=== PATIENT | female | born 1975 | race Caucasian/White ===

== ENCOUNTER → 2017-06-28 | Outpatient (CLI) | payer BC ==
[~2017-06-28] MED LIST: ALKALETE PO; MISCCAP80 PO; [UNRECOGNIZED DRUG - OTHER] PO
[2017-06-28 11:10] LABS: URINE APPEARANCE CLEAR (CLEAR); URINE BILIRUBIN NEG (NEG); URINE COLOR YELLOW; URINE EPITHELIAL CELL AUTO 0-5 /lpf (0-5); URINE NITRITE NEG (NEG); URINE PH 6.5 (4.5-7.5); URINE SPECIFIC GRAVITY 1.009 (1.000-1.030); UROBILINOGEN NEG (NEG); ZZUR CULT IF INDIC CLEAN CATCH NO
[2017-06-28 11:11] LABS: MANUAL MICROSCOPIC REQUIRED? NO; REVIEW REQ? NO
== END | disposition home or self-care (01) ==
LOC: C.LABSPEC 10:33
PROVIDERS: ATTEND Obstetrics & Gynecology
DX: R39.9 Unspecified symptoms and signs involving the genitourinary system (principal)

== ENCOUNTER → 2018-01-23 | Outpatient (CLI) | payer BC | END | disposition home or self-care (01) | LOC: C.LAB 13:09 | PROVIDERS: ATTEND Nurse Practitioner Adult Health | DX: R30.0 Dysuria (principal) ==

== ENCOUNTER 2025-08-07 17:15 | Observation (INO) ==
[2025-08-07] MEDS: SODIUM CHLORIDE 0.9% 500 ML IV STA (17:43)
[2025-08-07 18:21] LABS: Hematocrit (blood only) 40.5 % (37.0-47.0); Hemoglobin 14.0 g/dL (12.0-16.0); Immature Granulocytes # (auto) 0.03 K/uL (0.01-0.20); Immature Granulocytes % (auto) 0.3 %; Mean Corpuscular Hemoglobin 30.4 pg (25.0-34.0); Mean Corpuscular Volume 87.9 fL (80.0-100.0); Platelet Count 372 K/uL (130-400); RDW Standard Deviation 40.3 fL (36.4-46.3); Red Blood Count 4.61 M/uL (4.20-5.40); White Blood Count 10.50 K/ul (4.8-10.8)
[2025-08-07 18:40] LABS: Alanine Aminotransferase 23.0 U/L (7-52); Albumin Globulin Ratio 1.6 (0.9-2); Albumin Level 4.4 gm/dl (3.4-5.0); Alkaline Phosphatase 106.0 U/L (34-104); Anion Gap 9.0 (3-11); Bilirubin,Total 0.2 mg/dl (0.2-1.0); Blood Urea Nitrogen 14.0 mg/dl (6-23); Calcium 9.3 mg/dl (8.6-10.3); Carbon Dioxide 26.0 mmol/L (21-32); Chloride 103.0 mmol/L (98-107); Creatinine Clr Calc Pharmacy 55.0 ml/min; Globulin 2.8 gm/dl (2.5-4.0); Glucose 93.0 mg/dl (70-99(Fasting)); Potassium 3.6 mmol/L (3.5-5.1); Sodium 138.0 mmol/L (136-145); Total Protein 7.2 gm/dl (6.0-8.3)
[2025-08-07 19:13] LABS: POC Urine Bilirubin Negative (Negative); POC Urine Blood 50 (Negative); POC Urine Glucose Normal (Normal); POC Urine Ketones Negative (Negative); POC Urine Leukocytes Negative (Negative); POC Urine Nitrite Negative (Negative); POC Urine Protein Trace (Negative); POC Urine Urobilinogen Normal (Normal); POC Urine pH 5 (4.5-7.5)
[2025-08-07] MEDS: ONDANSETRON INJ 2 MG/ML 2 ML VIAL IV STA (19:16)
[2025-08-07] MEDS: KETOROLAC TROMETHAMINE 15 MG/ML VIAL IV STA ×2 (19:16→21:18)
[2025-08-07 19:25] LABS: Appearance Urine Clear (Clear); Bacteria Urine Automated 3+ (None Seen); Cast Urine Automated 0-2 /lpf (0-2); Glucose Urine UA Negative (Negative)
--- NOTE | 2025-08-07 20:48 | CT Scan Report ---
Exam: CT abdomen/pelvis without contrast. Reason for exam: Flank pain. Previous studies: CT abdomen/pelvis 05/15/2024. FINDINGS: The lower lung zones remain essentially clear. Liver unremarkable. Clips from cholecystectomy are present. Pancreas and spleen are unremarkable. Adrenal glands are unremarkable. Right kidney is unremarkable. Left kidney shows moderate hydronephrosis with a 1 mm mid pole calyceal calculus. There is a 7 x 4 mm calculus in the proximal left ureter with proximal ureteral dilatation. No further ureteral calculi seen at this time. Pelvic phleboliths remain stable. Bowel patterns are unremarkable without evidence of bowel obstruction. Appendix is unremarkable. IMPRESSION: 1. 7 mm proximal left ureteric calculus with moderate left hydronephrosis. Additional small left intrarenal calculus is present. 2. Otherwise negative for acute abnormalities. Electronically signed by Vinnie Rick 08-07-2025 8:47 PM
--- NOTE | 2025-08-07 21:15 | History & Physical Report ---
Date of Service August 07, 2025 Assessment & Plan (1) Hydronephrosis concurrent with and due to calculi of kidney and ureter: Plan: Assessment and plan below following discussion of case with ED provider and reviewing patient history/pertinent normal/abnormal diagnostic test results. Obstructive uropathy secondary to kidney stone No sepsis for now migraine, patient with chronic headache symptoms ADHD/mood disorder, stable on regimen ongoing tobacco abuse Admit to [facility] Strain urine Urology consult re: obstructive uropathy N.p.o. anticipation of procedure Nicotine patch as needed DVT prophylaxis Lovenox subcu Full code Text document was generated using [employer] voice recognition software. It may contain grammatical or spelling errors. Kindly contact undersigned for clarification of any documentation item in question. History of Present Illness Chief Complaint: Kidney stone Primary Care Provider: Amari Rousseau MD History obtained from patient and records. Medical history significant for urolithiasis, migraine, ADHD, IBS, mood disorder, thyroid nodules, ongoing tobacco abuse. Patient experienced achy left flank pain today reminiscent of kidney stone attack. Nausea with bilious emesis symptoms. Denies gross hematuria. No fever, no chills. IV ceftriaxone administered at the ER. 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, no EtOH intake, school paraprofessional Allergies Allergy/AdvReac Type Severity Reaction Status Date / Time Bactrim Allergy Intermediate RASH Verified 01/07/15 00:01 sulfamethoxazole Allergy Intermediate RASH Verified 08/07/25 20:04 trimethoprim Allergy Intermediate RASH Verified 08/07/25 20:04 Home Medications Medication Instructions Recorded Confirmed Type dextroamphetamine-amphetamine 5 mg 5 mg PO QDL 12/27/19 08/07/25 History tablet (Adderall) dextroamphetamine-amphetamine ER 25 mg PO QAM 12/27/19 08/07/25 History 25 mg 24hr capsule,extend release (Adderall XR) acyclovir 200 mg capsule 200 mg PO TID PRN Cold Sores 05/15/24 08/07/25 History [id number]-knovlkazbaktw-uurauath 1 cap PO QID PRN Migraine Headache 05/15/24 08/07/25 History 50 mg-300 mg-40 mg capsule cholecalciferol (vitamin D3) 1,250 50,000 unit PO WK 05/15/24 08/07/25 History mcg (50,000 unit) capsule Past Med/Surg History Problem List (Updated 08/08/25 @ 01:10 by Rashad Phelan MD) UTI (urinary tract infection) (Acute) Stress incontinence (Chronic) Incontinence (Chronic) Calcium nephrolithiasis (Chronic) Hydronephrosis concurrent with and due to calculi of kidney and ureter (Acute) COVID-19 (Acute) 09/10/21 Right foot pain 12/27/19 Fracture of proximal phalanx of toe of right foot 12/27/19 Small intestine obstruction (Acute) 01/07/15 Small bowel obstruction due to adhesions (Acute) 01/07/15 Small bowel obstruction (Acute) 01/07/15 Menorrhagia (Acute) Enlarged uterus (Acute) Acute thoracic back pain (Acute) 09/28/13 Medical History Sciatic hernia Kidney stones at present Enlarged thyroid blood work normal, nodules also present Migraine approx once a month History of COVID-19 2020 H/O small bowel obstruction happened after hyster, went back into same lap sites from hyster to correct the adhesions Surgical History History of loop electrical excision procedure (LEEP) History of esophagogastroduodenoscopy (EGD) History of colonoscopy S/P hysterectomy S/P tubal ligation S/P cholecystectomy Family History Denies family history of Deep vein thrombosis Pulmonary embolism Social History Smoking Status: Current every day smoker Tobacco Type: Cigarettes Cigarettes Per Day: 1/2 ppd > advised npo; Second Hand Exposure: No; Do You Dip or Chew Tobacco: No; Tobacco Cessation Education Requested by Patient: No Hx Alcohol Use: No Hx Substance Use: No Preferred Language: Khmer Communication Ability: Effective Consumer Loan Processor Required: No Beliefs That Will Affect Care: None Current Living Situation: Spouse Other Information That Helps Us Care for You: No Feels Safe at Home: Yes Safety Concerns: Feels Safe At This Time Assistive Devices: Glasses Review of Systems Review of Systems: As per HPI, all other systems reviewed and negative Physical Exam Physical Exam: GENERAL: Slightly uncomfortable, pleasant, no respiratory distress SKIN: Normal color, warm HEENT: Bespectacled, pink palpebral conjunctivae, no ptosis, dry buccal mucosa NECK : Supple, no tenderness CHEST : CTA, no tenderness HEART : RRR, no obvious murmurs ABDOMEN: Some distention, left flank tenderness EXTREMITIES : No LE swelling/tenderness, palpable pulses, no other conspicuous deformities noted NEUROLOGIC : Coherent, no facial asymmetry, no other gross focality Results & Data Results & Data Vital Signs (Past 12 Hours) Vital Signs Temp Pulse Pulse Resp BP BP Pulse Ox 08/07/25 21:00 93 H 19 146/91 H 98 08/07/25 19:00 87 20 155/95 H 99 08/07/25 18:30 93 H 08/07/25 17:25 36.5 C 85 18 148/93 H 99 O2 Del Method 08/07/25 21:00 Room Air 08/07/25 19:00 Room Air 08/07/25 18:30 08/07/25 17:25 Room Air Laboratory Results Laboratory Results WBC 10.50 K/ul (4.8-10.8) 08/07/25 17:48 RBC 4.61 M/uL (4.20-5.40) 08/07/25 17:48 Hgb 14.0 g/dL (12.0-16.0) 08/07/25 17:48 Hct 40.5 % (37.0-47.0) 08/07/25 17:48 MCV 87.9 fL (80.0-100.0) 08/07/25 17:48 MCH 30.4 pg (25.0-34.0) 08/07/25 17:48 MCHC 34.6 g/dL (32.0-36.0) 08/07/25 17:48 RDW Std Deviation 40.3 fL (36.4-46.3) 08/07/25 17:48 RDW Coeff of Tray 12.6 % (11.5-14.5) 08/07/25 17:48 Plt Count 372 K/uL (130-400) 08/07/25 17:48 MPV 9.7 fL (9.4-12.4) 08/07/25 17:48 Immature Gran % (Auto) 0.3 % 08/07/25 17:48 Neut % (Auto) 65.9 % 08/07/25 17:48 Lymph % (Auto) 23.2 % 08/07/25 17:48 [place] % (Auto) 7.3 % 08/07/25 17:48 Eos % (Auto) 2.2 % 08/07/25 17:48 Baso % (Auto) 1.1 % 08/07/25 17:48 Neut # (Auto) 6.91 K/uL (1.40-6.50) H 08/07/25 17:48 Lymph # (Auto) 2.44 K/uL (1.20-3.40) 08/07/25 17:48 [place] # (Auto) 0.77 K/uL (0.11-0.59) H 08/07/25 17:48 Eos # (Auto) 0.23 K/uL (0.00-0.50) 08/07/25 17:48 Baso # (Auto) 0.12 K/uL (0.00-0.20) 08/07/25 17:48 Immature Gran # (Auto) 0.03 K/uL (0.01-0.20) 08/07/25 17:48 Sodium 138 mmol/L (136-145) 08/07/25 17:48 Potassium 3.6 mmol/L (3.5-5.1) 08/07/25 17:48 Chloride 103 mmol/L (98-107) 08/07/25 17:48 Carbon Dioxide 26 mmol/L (21-32) 08/07/25 17:48 Anion Gap 9 (3-11) 08/07/25 17:48 BUN 14 mg/dl (6-23) 08/07/25 17:48 Creatinine 1.05 mg/dl (0.6-1.2) 08/07/25 17:48 Est Cr Clr Drug Dosing 55.0 ml/min 08/07/25 17:48 eGFR 64.73 08/07/25 17:48 BUN/Creatinine Ratio 13.3 (10-20) 08/07/25 17:48 Glucose 93 mg/dl (70-99(Fasting)) 08/07/25 17:48 Calcium 9.3 mg/dl (8.6-10.3) 08/07/25 17:48 Total Bilirubin 0.2 mg/dl (0.2-1.0) 08/07/25 17:48 AST 22 U/L (13-39) 08/07/25 17:48 ALT 23 U/L (7-52) 08/07/25 17:48 Alkaline Phosphatase 106 U/L (34-104) H 08/07/25 17:48 Total Protein 7.2 gm/dl (6.0-8.3) 08/07/25 17:48 Albumin 4.4 gm/dl (3.4-5.0) 08/07/25 17:48 Globulin 2.8 gm/dl (2.5-4.0) 08/07/25 17:48 Albumin/Globulin Ratio 1.6 (0.9-2) 08/07/25 17:48 Urine Color Yellow 08/07/25 19:08 Urine Appearance Clear (Clear) 08/07/25 19:08 Urine pH 6.5 (4.5-7.5) 08/07/25 19:08 POC Urine pH 5 (4.5-7.5) 08/07/25 19:08 Ur Specific [place] 1.009 (1.000-1.030) 08/07/25 19:08 Urine Protein Negative (Negative) 08/07/25 19:08 POC Urine Protein Trace (Negative) H 08/07/25 19:08 Urine Glucose (UA) Negative (Negative) 08/07/25 19:08 POC Ur Glucose (UA) Normal (Normal) 08/07/25 19:08 Urine Ketones Negative (Negative) 08/07/25 19:08 POC Urine Ketones Negative (Negative) 08/07/25 19:08 Urine Blood 1+ (Negative) H 08/07/25 19:08 POC Urine Blood 50 (Negative) H 08/07/25 19:08 Urine Nitrite Negative (Negative) 08/07/25 19:08 POC Urine Nitrite Negative (Negative) 08/07/25 19:08 Urine Bilirubin Negative (Negative) 08/07/25 19:08 POC Urine Bilirubin Negative (Negative) 08/07/25 19:08 Urine Urobilinogen Negative (Negative) 08/07/25 19:08 POC Urine Urobilinogen Normal (Normal) 08/07/25 19:08 Ur Leukocyte Esterase 1+ (Negative) H 08/07/25 19:08 POC U Leukocyte Esteras Negative (Negative) 08/07/25 19:08 Urine WBC (Auto) 6-10 /hpf (0-5) H 08/07/25 19:08 Urine RBC (Auto) 6-10 /hpf (0-2) H 08/07/25 19:08 U Hyaline Cast (Auto) 0-2 /lpf (0-2) 08/07/25 19:08 U Epithel Cells (Auto) 3-5 /hpf (0-2) H 08/07/25 19:08 Urine Bacteria (Auto) 3+ (None Seen) H 08/07/25 19:08 POC Ur Test NEG (NEG) 08/07/25 19:08 Urine Comment 08/07/25 19:08 Impressions Abdomen/Pelvis CT 08/07/25 19:11 Exam: CT abdomen/pelvis without contrast. Reason for exam: Flank pain. Previous studies: CT abdomen/pelvis 05/15/2024. FINDINGS: The lower lung zones remain essentially clear. Liver unremarkable. Clips from cholecystectomy are present. Pancreas and spleen are unremarkable. Adrenal glands are unremarkable. Right kidney is unremarkable. Left kidney shows moderate hydronephrosis with a 1 mm mid pole calyceal calculus. There is a 7 x 4 mm calculus in the proximal left ureter with proximal ureteral dilatation. No further ureteral calculi seen at this time. Pelvic phleboliths remain stable. Bowel patterns are unremarkable without evidence of bowel obstruction. Appendix is unremarkable. IMPRESSION: 1. 7 mm proximal left ureteric calculus with moderate left hydronephrosis. Additional small left intrarenal calculus is present. 2. Otherwise negative for acute abnormalities. Electronically signed by Vinnie Rick 08-07-2025 8:47 PM
[2025-08-07] MEDS: cefTRIAXone SODIUM 2,000 MG/50 ML BAG IV STA (21:18)
[2025-08-07] MEDS ORDERED: ACETAMINOPHEN 325 MG TAB PO PRN (22:38)
[2025-08-07] MEDS ORDERED: LORazepam 0.5 MG TAB PO PRN (22:58)
[2025-08-07] MEDS ORDERED: MELATONIN 3 MG TAB PO PRN (22:58)
[2025-08-07] MEDS ORDERED: BUTALBITAL/ACETAMIN/CAFFEINE TAB PO PRN (23:07)
[2025-08-08] MEDS: MoRPHine SULFATE 4 MG/ML 1 ML CARP\\VIAL IV PRN (00:35)
[2025-08-08] MEDS: SODIUM CHLORIDE 0.9% 1,000 ML IV STA (00:36)
--- NOTE | 2025-08-08 01:10 | Emergency Department Note ---
History of Present Illness General Chief Complaint: Kidney Stone Stated Complaint: KIDNEY PAIN, CONCERN ABT STONE, HX KIDNEY STONE Time Seen by Provider: 08/07/25 18:59 History of Present Illness Provider Complaint: flank pain Onset (ago): hour(s) (4.5) Pain Consistency: intermittent Location: L flank Radiation: LLQ Severity: moderate Maximum Pain Intensity: 6 Current Pain Intensity: 6 Quality: + stabbing and + sharp Relieved By: + nothing Exacerbated By: + nothing Context: + history of similar episodes (History of kidney stones); no foreign travel, no possible food poisoning, no sick contacts, no recent antibiotic use, no recent surgery/procedure or no recent injury Associated Symptoms: + nausea and + vomiting; no diarrhea, no fever, no chills, no constipation, no dysuria, no hematemesis, no hematochezia, no melena, no hematuria, no syncope, no headache, no chest pain and no breathing difficulty Home Medications Medication Instructions Recorded Confirmed Type dextroamphetamine-amphetamine 5 mg 5 mg PO QDL 12/27/19 08/07/25 History tablet (Adderall) dextroamphetamine-amphetamine ER 25 mg PO QAM 12/27/19 08/07/25 History 25 mg 24hr capsule,extend release (Adderall XR) acyclovir 200 mg capsule 200 mg PO TID PRN Cold Sores 05/15/24 08/07/25 History mygzcveaao-bjzxwkzvuwtag-dwilskxb 1 cap PO QID PRN Migraine Headache 05/15/24 08/07/25 History 50 mg-300 mg-40 mg capsule cholecalciferol (vitamin D3) 1,250 50,000 unit PO WK 05/15/24 08/07/25 History mcg (50,000 unit) capsule Allergies Allergy/AdvReac Type Severity Reaction Status Date / Time Bactrim Allergy Intermediate RASH Verified 01/07/15 00:01 sulfamethoxazole Allergy Intermediate RASH Verified 08/07/25 20:04 trimethoprim Allergy Intermediate RASH Verified 08/07/25 20:04 Past Med/Surg History Problem List (Updated 08/08/25 @ 01:10 by Rashad Phelan MD) UTI (urinary tract infection) (Acute) Stress incontinence (Chronic) Incontinence (Chronic) Calcium nephrolithiasis (Chronic) Hydronephrosis concurrent with and due to calculi of kidney and ureter (Acute) COVID-19 (Acute) 09/10/21 Right foot pain 12/27/19 Fracture of proximal phalanx of toe of right foot 12/27/19 Small intestine obstruction (Acute) 01/07/15 Small bowel obstruction due to adhesions (Acute) 01/07/15 Small bowel obstruction (Acute) 01/07/15 Menorrhagia (Acute) Enlarged uterus (Acute) Acute thoracic back pain (Acute) 09/28/13 Medical History Sciatic hernia Kidney stones at present Enlarged thyroid blood work normal, nodules also present Migraine approx once a month History of COVID-19 2020 H/O small bowel obstruction happened after hyster, went back into same lap sites from hyster to correct the adhesions Surgical History History of loop electrical excision procedure (LEEP) History of esophagogastroduodenoscopy (EGD) History of colonoscopy S/P hysterectomy S/P tubal ligation S/P cholecystectomy Family History Denies family history of Deep vein thrombosis Pulmonary embolism Social History Smoking Status: Current every day smoker Tobacco Type: Cigarettes Cigarettes Per Day: 1/2 ppd > advised npo; Second Hand Exposure: No; Do You Dip or Chew Tobacco: No; Hx Alcohol Use: No Hx Substance Use: No Preferred Language: Ghanaian Communication Ability: Effective Microsoft Application Developer Required: No Beliefs That Will Affect Care: None Current Living Situation: Spouse Feels Safe at Home: Yes Assistive Devices: Glasses Physical Exam 2 Vital Signs: Vital Signs - 24 hr 08/07/25 17:25 08/07/25 18:30 08/07/25 19:00 Temperature 36.5 C Temperature Source Skin Pulse Rate 85 93 H Pulse Rate [Apical ] 87 Pulse Rhythm [Apic al] Regular Pulse Strength [Ap ical] Normal Respiratory Rate 18 20 Respiratory Effort / Characteristics Non-Labored Sponta neous Spontaneous Respiratory Depth Normal Respiratory Patter n Regular Blood Pressure 148/93 H Blood Pressure [Le ft Arm] 155/95 H Blood Pressure Suzi n 111 Blood Pressure Suzi n [Left Arm] 115 Blood Pressure Pos ition [Left Arm] Lying Pulse Oximetry 99 99 Oxygen Delivery Me thod Room Air Room Air Sepsis Recent Feve r Within 48 Hours No Sepsis New/Unexpla ined Change in Men nikita Status N/A Sepsis Action Take n by Nursing No Action Required 08/07/25 21:00 08/07/25 22:31 Temperature Temperature Source Pulse Rate 85 Pulse Rate [Apical ] 93 H Pulse Rhythm [Apic al] Pulse Strength [Ap ical] Respiratory Rate 19 Respiratory Effort / Characteristics Non-Labored Sponta neous Respiratory Depth Respiratory Patter n Regular Blood Pressure Blood Pressure [Le ft Arm] 146/91 H Blood Pressure Suzi n Blood Pressure Suzi n [Left Arm] 109 Blood Pressure Pos ition [Left Arm] Sitting Pulse Oximetry 98 Oxygen Delivery Me thod Room Air Sepsis Recent Feve r Within 48 Hours Sepsis New/Unexpla ined Change in Men nikita Status Sepsis Action Take n by Nursing Physical Exam: Physical Exam GENERAL: oriented to person, place, and time. appears well-developed and well- nourished. She does not appear distressed. HENT: Exam performed. -Head: Normocephalic and atraumatic. -Right Ear: External ear normal. No mastoid erythema -Left Ear: External ear normal. No mastoid erythema -Mouth/Throat: The oropharynx is clear and moist. No trismus in the jaw. No dental abscesses or uvula swelling. No oropharyngeal exudate or tonsillar abscesses. EYES: Conjunctivae and EOM are normal.Right eye exhibits no discharge. Left eye exhibits no discharge. No scleral icterus. NECK: Normal range of motion. Neck supple. No JVD present. No tracheal deviation and normal range of motion present. CV: Normal rate, regular rhythm, normal heart sounds and intact distal pulses. There is no peripheral edema. Palpable radial pulses bue. PULM/CHEST: Effort normal and breath sounds normal. No respiratory distress. No stridor. no wheezes.no rales. -Chest Wall: no tenderness to palpation ABD: The abdomen is soft. Bowel sounds are normal. no distension. No mass is present. There is no tenderness. There is no rebound, no guarding, no Day's sign and no tenderness at McBurney's point. Rovsig negative. Left-sided CVA tenderness. MUSC/SKEL: Normal range of motion. There is no peripheral edema, tenderness or deformity. NEURO: Motor and sensation grossly intact. SKIN: Skin is warm and dry. not diaphoretic. PSYCH: normal mood and affect. Behavior is normal. Judgment and thought content normal. Course Course 1858: The patient was evaluated in room B12. A complete history and physical exam was performed Cardiac monitoring: An order was placed for continuous cardiac monitoring. The monitor shows a rate of 80 with sinus rhythm interpreted by [place] 2015: Vital signs stable. Labs are unremarkable. Urinalysis is contaminated sample however there is some bacteria in there. Patient has left-sided 7 mm stone with hydroureter. Notified urology Dr. Hawkins via [place] text who agreed to be on consult. Patient treated with Rocephin. Patient will be admitted to the hospitalist team. Administered Medications Sodium Chloride (Nss) 1,000 mls @ 75 mls/hr IV .[id number] STA Stop: 08/08/25 12:22 Last Admin: 08/08/25 00:36 Dose: 75 mls/hr Documented By: miley Morphine Sulfate (Morphine Sulfate 4 Mg/Ml 1 Ml Carp\Vial) 4 mg IV Q4H PRN PRN Reason: Pain Stop: 08/21/25 22:37 Last Admin: 08/08/25 00:35 Dose: 4 mg Documented By: miley Discontinued Medications Sodium Chloride (Nss) 500 mls @ 999 mls/hr IV .[id number] STA Stop: 08/07/25 17:57 Last Infusion: 08/07/25 18:40 Dose: Infused Documented By: [facility] [place] Admin: 08/07/25 17:43 Dose: 999 mls/hr Documented By: ALAN Ceftriaxone Sodium (Rocephin) 2,000 mg in 50 mls @ 100 mls/hr IV NOW STA Stop: 08/07/25 21:35 Last Infusion: 08/07/25 22:13 Dose: Infused Documented By: [facility] [place] Admin: 08/07/25 21:18 Dose: 100 mls/hr Documented By: fernando Ketorolac Tromethamine (Ketorolac Tromethamine 15 Mg/Ml Vial) 15 mg IV NOW STA Stop: 08/07/25 19:14 Last Admin: 08/07/25 19:16 Dose: 15 mg Documented By: GIULIANA Ketorolac Tromethamine (Ketorolac Tromethamine 15 Mg/Ml Vial) 15 mg IV NOW STA Stop: 08/07/25 21:07 Last Admin: 08/07/25 21:18 Dose: 15 mg Documented By: fernando Ondansetron HCl (Ondansetron Inj 2 Mg/Ml 2 Ml Vial) 4 mg IV NOW STA Stop: 08/07/25 19:14 Last Admin: 08/07/25 19:16 Dose: 4 mg Documented By: NONA Medical Decision Making Laboratory Data Attestation: I reviewed the patient's lab results. 08/07/25 17:48 08/07/25 17:48 Lab Results 08/07/25 08/07/25 Range/Units 17:48 19:08 WBC 10.50 (4.8-10.8) K/ul RBC 4.61 (4.20-5.40) M/uL Hgb 14.0 (12.0-16.0) g/dL Hct 40.5 (37.0-47.0) % MCV 87.9 (80.0-100.0) fL MCH 30.4 (25.0-34.0) pg MCHC 34.6 (32.0-36.0) g/dL RDW Std Deviation 40.3 (36.4-46.3) fL RDW Coeff of Tray 12.6 (11.5-14.5) % Plt Count 372 (130-400) K/uL MPV 9.7 (9.4-12.4) fL Immature Gran % (Auto) 0.3 % Neut % (Auto) 65.9 % Lymph % (Auto) 23.2 % [place] % (Auto) 7.3 % Eos % (Auto) 2.2 % Baso % (Auto) 1.1 % Neut # (Auto) 6.91 H (1.40-6.50) K/uL Lymph # (Auto) 2.44 (1.20-3.40) K/uL [place] # (Auto) 0.77 H (0.11-0.59) K/uL Eos # (Auto) 0.23 (0.00-0.50) K/uL Baso # (Auto) 0.12 (0.00-0.20) K/uL Immature Gran # (Auto) 0.03 (0.01-0.20) K/uL Sodium 138 (136-145) mmol/L Potassium 3.6 (3.5-5.1) mmol/L Chloride 103 (98-107) mmol/L Carbon Dioxide 26 (21-32) mmol/L Anion Gap 9 (3-11) BUN 14 (6-23) mg/dl Creatinine 1.05 (0.6-1.2) mg/dl Est Cr Clr Drug Dosing 55.0 ml/min eGFR 64.73 BUN/Creatinine Ratio 13.3 (10-20) Glucose 93 (70-99(Fasting)) mg/dl Calcium 9.3 (8.6-10.3) mg/dl Total Bilirubin 0.2 (0.2-1.0) mg/dl AST 22 (13-39) U/L ALT 23 (7-52) U/L Alkaline Phosphatase 106 H (34-104) U/L Total Protein 7.2 (6.0-8.3) gm/dl Albumin 4.4 (3.4-5.0) gm/dl Globulin 2.8 (2.5-4.0) gm/dl Albumin/Globulin Ratio 1.6 (0.9-2) Urine Color Yellow Urine Appearance Clear (Clear) Urine pH 6.5 (4.5-7.5) POC Urine pH 5 (4.5-7.5) Ur Specific [place] 1.009 (1.000-1.030) Urine Protein Negative (Negative) POC Urine Protein Trace H (Negative) Urine Glucose (UA) Negative (Negative) POC Ur Glucose (UA) Normal (Normal) Urine Ketones Negative (Negative) POC Urine Ketones Negative (Negative) Urine Blood 1+ H (Negative) POC Urine Blood 50 H (Negative) Urine Nitrite Negative (Negative) POC Urine Nitrite Negative (Negative) Urine Bilirubin Negative (Negative) POC Urine Bilirubin Negative (Negative) Urine Urobilinogen Negative (Negative) POC Urine Urobilinogen Normal (Normal) Ur Leukocyte Esterase 1+ H (Negative) POC U Leukocyte Esteras Negative (Negative) Urine WBC (Auto) 6-10 H (0-5) /hpf Urine RBC (Auto) 6-10 H (0-2) /hpf U Hyaline Cast (Auto) 0-2 (0-2) /lpf U Epithel Cells (Auto) 3-5 H (0-2) /hpf Urine Bacteria (Auto) 3+ H (None Seen) POC Ur Test NEG (NEG) Urine Comment Imaging Data Radiologist's Impression: Abdomen/Pelvis CT 08/07/25 19:11 Exam: CT abdomen/pelvis without contrast. Reason for exam: Flank pain. Previous studies: CT abdomen/pelvis 05/15/2024. FINDINGS: The lower lung zones remain essentially clear. Liver unremarkable. Clips from cholecystectomy are present. Pancreas and spleen are unremarkable. Adrenal glands are unremarkable. Right kidney is unremarkable. Left kidney shows moderate hydronephrosis with a 1 mm mid pole calyceal calculus. There is a 7 x 4 mm calculus in the proximal left ureter with proximal ureteral dilatation. No further ureteral calculi seen at this time. Pelvic phleboliths remain stable. Bowel patterns are unremarkable without evidence of bowel obstruction. Appendix is unremarkable. IMPRESSION: 1. 7 mm proximal left ureteric calculus with moderate left hydronephrosis. Additional small left intrarenal calculus is present. 2. Otherwise negative for acute abnormalities. Electronically signed by Vinnie Rick 08-07-2025 8:47 PM [facility] Narrative 1859: The patient was evaluated in room B12. A complete history and physical exam was performed Cardiac monitoring: An order was placed for continuous cardiac monitoring. The monitor shows a rate of 80 with sinus rhythm interpreted by [place] 2015: Vital signs stable. Labs are unremarkable. Urinalysis is contaminated sample however there is some bacteria in there. Patient has left-sided 7 mm stone with hydroureter. Notified urology Dr. Hawkins via [place] text who agreed to be on consult. Patient treated with Rocephin. Patient will be admitted to the hospitalist team. Impression & Plan Hydronephrosis concurrent with and due to calculi of kidney and ureter, UTI (urinary tract infection) Discharge Plan Visit Data Chief Complaint: Kidney Stone Stated Complaint: KIDNEY PAIN, CONCERN ABT STONE, HX KIDNEY STONE ED Provider: Rashad Phelan Discharge Problem: Hydronephrosis concurrent with and due to calculi of kidney and ureter, UTI (urinary tract infection) Patient Disposition: Admitted As Inpatient Condition: Fair Discharge Instructions Interventions: ED Discharge Assessment Last Done: 08/07/25 22:58
[2025-08-08] MEDS: FAMOTIDINE 20MG IV PUSH 20 MG/5 ML SYR IV ONE (01:19)
[2025-08-08] MEDS: ACETAMINOPHEN 1,000 MG/100 ML VIAL IV STA (01:19)
[2025-08-08] MEDS: DEXTROAMPHETAMINE/AMPHETAMINE ER 5 MG CAP PO SCH (06:08)
[2025-08-08] MEDS: SODIUM CHLORIDE 0.9% 1,000 ML IV ONE (07:55)
[2025-08-08 08:09] LABS: Hematocrit (blood only) 39.0 % (37.0-47.0); Hemoglobin 13.1 g/dL (12.0-16.0); Immature Granulocytes # (auto) 0.04 K/uL (0.01-0.20); Immature Granulocytes % (auto) 0.3 %; Mean Corpuscular Hemoglobin 29.7 pg (25.0-34.0); Mean Corpuscular Volume 88.4 fL (80.0-100.0); Platelet Count 334 K/uL (130-400); RDW Standard Deviation 41.0 fL (36.4-46.3); Red Blood Count 4.41 M/uL (4.20-5.40); White Blood Count 11.68 K/ul (4.8-10.8)
[2025-08-08 08:29] LABS: Anion Gap 7.0 (3-11); Blood Urea Nitrogen 10.0 mg/dl (6-23); Calcium 9.1 mg/dl (8.6-10.3); Carbon Dioxide 27.0 mmol/L (21-32); Chloride 106.0 mmol/L (98-107); Creatinine Clr Calc Pharmacy 86.5 ml/min; Glucose 87.0 mg/dl (70-99(Fasting)); Potassium 3.8 mmol/L (3.5-5.1); Sodium 140.0 mmol/L (136-145)
[2025-08-08] MEDS: PROMETHAZINE 12.5 MG/50.5 ML BAG IV PRN (08:29)
[2025-08-08] MEDS ORDERED: ENOXAPARIN INJ 40 MG/0.4 ML SYR SQ SCH (09:00)
--- NOTE | 2025-08-08 09:04 | Urology Consultation ---
Date of Consultation August 08, 2025 Assessment & Plan (1) Hydronephrosis, left: (2) Left ureteral calculus: (3) Flank pain: Plan 50-year-old female who presented with acute left flank pain and found to have an obstructing 7 mm proximal left ureteral stone. Patient is afebrile and hemodynamically stable. Labs today show mild leukocytosis of 11.68, hemoglobin 13.1, and normal renal function. UA with 3+bacteria, 610 WBC, 610 RBC, 35 epithelial cells. On Ceftriaxone. Still with left flank pain, managing with medication. Has been NPO. We discussed acute stone management with cystoscopy and stent placement. Ureteral stents were discussed as well as postoperative issues and pain management. She is aware a second procedure will be needed for stone treatment. Risks and benefits were discussed. Expected clinical course reviewed. All questions were answered. Will proceed to the OR today for cystoscopy, left retrograde pyelogram, left ureteral stent placement. Risks and benefits to be reviewed with patient by Dr. Alberto. Keep NPO. Covered with scheduled IV ceftriaxone. Urology to follow. Attending note: Patient independently assessed, examined, interviewed, and evaluated. Patient with obstructing left stone. Previously had obstruction on the same side approximately a year and a half ago. Agree with note as above. Patient's vitals and labs were all reviewed. Pertinent values in the HPI and plan section. White count elevated 11.68. Creatinine 0.67 hemoglobin 13.1 patient currently afebrile with temp 36.8. Blood pressure 117/77 pulse 84 respirations 18 oxygen saturation 96% on room air. Imaging was reviewed interpreted by myself. Agree with read. Vitals were reviewed. Discussed findings extensively with patient and family. Reviewed with nurse practitioner as well as consulting physicians/team. Imaging appears to show a obstructing stone with hydronephrosis on the left. Stone within the proximal ureter. Patient's complicated medical and surgical history was reviewed and summarized above. Patient's surgical, medical, social, and family history were all reviewed with pertinent values as above. Discussed patient's current diagnosis as well as concerns and issues. Reviewed different options moving forward. Discussed potential risks and benefits as well as possible options and concerns. Reviewed potential surgical options and interventions. Discussed potential issues and concerns related to intervention. Risk and benefits were discussed extensively with patient and any available family. Discussed potential risks related to anesthesia. Discussed risks of bleeding infection and injury. Discussed options for conservative measure and maximum expulsion medical therapy and symptom controlled. Discussed ESWL. Discussed Ureteroscopy with extraction and/or laser lithotripsy. Risks and benefits were discussed. Stone free rates were also discussed as well as possibility of multiple procedures. Ureteral stents were discussed as well as post-operative issues and pain management. All questions were answered. Risks and benefits discussed at length for procedure. These include bleeding, infection, injury to surrounding tissues or organs, and risks associated with anesthesia. Patient states understanding and agrees to proceed. Will sign consent and schedule. Plan for cystoscopy with possible left stent History of Present Illness Attending Physician: Hossein Cortez DO History of Present Illness 50 year old female who presented to the ED on 08/07/2025 with acute left flank pain. In the ED, she was afebrile and hemodynamically stable. Labs showed WBCs 10.50 and creatinine 1.05. Urinalysis with 1+ blood, negative nitrite, 1+ leukocyte esterase, 610 WBC, 610 RBC, 35 epithelial cells, 3+ bacteria. CT abd pelvis demonstrated a 7 mm proximal left ureteric calculus with moderate left hydronephrosis and an additional small left intrarenal calculus. Patient admitted to medicine service. She is on Ceftriaxone. Pt seen at bedside today. Awake and resting in bed on arrival. NAD. Has been NPO. Pain currently controlled w/medication. No fevers. Voiding without issue. Denied hematuria or dysuria. Pt with history of stones and prior intervention. Has followed with Dr. Alberto. Reports poorly tolerating a stent in the past. Allergies Allergy/AdvReac Type Severity Reaction Status Date / Time Bactrim Allergy Intermediate RASH Verified 01/07/15 00:01 sulfamethoxazole Allergy Intermediate RASH Verified 08/07/25 20:04 trimethoprim Allergy Intermediate RASH Verified 08/07/25 20:04 Home Medications Medication Instructions Recorded Confirmed Type dextroamphetamine-amphetamine 5 mg 5 mg PO QDL 12/27/19 08/07/25 History tablet (Adderall) dextroamphetamine-amphetamine ER 25 mg PO QAM 12/27/19 08/07/25 History 25 mg 24hr capsule,extend release (Adderall XR) acyclovir 200 mg capsule 200 mg PO TID PRN Cold Sores 05/15/24 08/07/25 History gxtdoaprhw-javboibbjxtzi-wnevdacl 1 cap PO QID PRN Migraine Headache 05/15/24 08/07/25 History 50 mg-300 mg-40 mg capsule cholecalciferol (vitamin D3) 1,250 50,000 unit PO WK 05/15/24 08/07/25 History mcg (50,000 unit) capsule Patient History Medical History Sciatic hernia Kidney stones at present Enlarged thyroid blood work normal, nodules also present Migraine approx once a month History of COVID-19 2020 H/O small bowel obstruction happened after hyster, went back into same lap sites from hyster to correct the adhesions Surgical History History of loop electrical excision procedure (LEEP) History of esophagogastroduodenoscopy (EGD) History of colonoscopy S/P hysterectomy S/P tubal ligation S/P cholecystectomy Family History Denies family history of Deep vein thrombosis Pulmonary embolism Social History Smoking Status: Current every day smoker Tobacco Type: Cigarettes Cigarettes Per Day: 1/2 ppd > advised npo; Second Hand Exposure: No; Do You Dip or Chew Tobacco: No; Tobacco Cessation Education Requested by Patient: No Hx Alcohol Use: No Hx Substance Use: No Preferred Language: Swedish Communication Ability: Effective Frame Bander Required: No Beliefs That Will Affect Care: None Current Living Situation: Spouse Other Information That Helps Us Care for You: No Feels Safe at Home: Yes Safety Concerns: Feels Safe At This Time Assistive Devices: Glasses Review of Systems Review of Systems: All systems reviewed & are unremarkable except as noted in HPI & below Physical Exam Constitutional: no acute distress Respiratory: no respiratory distress and no labored breathing Neurologic: moves all extremities and awake Psychiatric: A+Ox3, euthymic affect Results & Data Vital Signs (Past 12 Hours) Vital Signs Temp Pulse Pulse Pulse Resp BP Pulse Ox 08/08/25 07:39 36.5 C 77 16 113/76 97 08/08/25 01:00 36.4 C L 69 20 100/69 99 08/08/25 00:10 08/08/25 00:10 36.3 C L 78 16 125/84 96 08/07/25 22:31 85 O2 Del Method 08/08/25 07:39 Room Air 08/08/25 01:00 Room Air 08/08/25 00:10 Room Air 08/08/25 00:10 Room Air 08/07/25 22:31 PG Care Time/CCT Total # of Minutes Spent Total Time Spent with Patient: Total time spent is greater than 50% in coordination of care (as documented) at patient's floor/unit and/or counseling patient: Coding Level of Care Code 96809 IN/OBS CONSULT LVL 4,60M Diagnoses Hydronephrosis, left N13.30 Left ureteral calculus N20.1 Flank pain R10.A0
--- NOTE | 2025-08-08 09:41 | Anesthesiology Consultation ---
Date of Service August 08, 2025 Assessment & Plan Chart Review Chart Review: Acceptable Risk for Surgery and Patient NOT seen in Pre Admission Testing History Surgery Operation Date: 08/08/25 08:25 Proposed Procedures p Cystoscopy, Left Retrograde Pyelogram, Left Stent Placement - Alexander Alberot, Height/Weight Height: 5 ft Weight: 68.1 kg Allergies Allergy/AdvReac Type Severity Reaction Status Date / Time Bactrim Allergy Intermediate RASH Verified 01/07/15 00:01 sulfamethoxazole Allergy Intermediate RASH Verified 08/07/25 20:04 trimethoprim Allergy Intermediate RASH Verified 08/07/25 20:04 Medications Home Medications Medication Instructions Recorded Confirmed Last Taken dextroamphetamine-amphetamine 5 mg 5 mg PO QDL 12/27/19 08/07/25 08/07/25 tablet (Adderall) dextroamphetamine-amphetamine ER 25 mg PO QAM 12/27/19 08/07/25 08/07/25 25 mg 24hr capsule,extend release (Adderall XR) acyclovir 200 mg capsule 200 mg PO TID PRN Cold Sores 05/15/24 08/07/25 05/12/24 ybzdwihnek-cxycuealrivww-ksahpbjo 1 cap PO QID PRN Migraine Headache 05/15/24 08/07/25 08/06/25 50 mg-300 mg-40 mg capsule cholecalciferol (vitamin D3) 1,250 50,000 unit PO WK 05/15/24 08/07/25 08/01/25 mcg (50,000 unit) capsule Active Medications Generic Name Dose Route Start Last Admin Trade Name Freq PRN Reason Stop Dose Admin Amphetamine/Dextroamphetamine 20 mg 08/08/25 07:00 08/08/25 06:07 Dextroamphetamine/Amphetamine Er 20 Mg Cap PO 08/22/25 06:59 Not Given Q24H SASHA Amphetamine/Dextroamphetamine 5 mg 08/08/25 07:00 08/08/25 06:08 Dextroamphetamine/Amphetamine Er 5 Mg Cap PO 08/22/25 06:59 Not Given Q24H SASHA Promethazine HCl 12.5 mg in 50.5 mls @ 202 mls/hr 08/07/25 22:38 08/08/25 09:04 Phenergan IV 09/06/25 22:37 Infused Q6H PRN Infusion Nausea And Vomiting Sodium Chloride 1,000 mls @ 100 mls/hr 08/08/25 08:00 08/08/25 07:55 Nss IV 08/08/25 17:59 100 mls/hr .Q10H ONE Administration Morphine Sulfate 4 mg 08/07/25 22:38 08/08/25 00:35 Morphine Sulfate 4 Mg/Ml 1 Ml Carp\Vial IV 08/21/25 22:37 4 mg Q4H PRN Administration Pain Oxycodone HCl 5 - 10 mg 08/07/25 22:38 08/08/25 07:51 Oxycodone Hcl Ir 5 Mg Tab (Immediate Release) PO 08/21/25 22:37 10 mg QID PRN Administration Pain Past Medical History Medical History Sciatic hernia Kidney stones at present Enlarged thyroid blood work normal, nodules also present Migraine approx once a month History of COVID-19 2020 H/O small bowel obstruction happened after hyster, went back into same lap sites from hyster to correct the adhesions Past Family History Family History Denies family history of Deep vein thrombosis Pulmonary embolism Past Surgical History Surgical History History of loop electrical excision procedure (LEEP) History of esophagogastroduodenoscopy (EGD) History of colonoscopy S/P hysterectomy S/P tubal ligation S/P cholecystectomy Social History Smoking Status: Current every day smoker Smoking cigarettes per day: 1/2 ppd > advised npo Do You Dip or Chew Tobacco: No Hx Alcohol Use: No Hx Substance Use: No substance use type: does not use Physical Exam Vital Signs Last Vital Signs Temp 36.5 C 08/08/25 07:39 Pulse 77 08/08/25 07:39 Resp 16 08/08/25 07:39 BP 113/76 08/08/25 07:39 Pulse Ox 97 08/08/25 07:39 O2 Del Method Room Air 08/08/25 07:39 Testing Laboratory Results 08/08/25 07:02 08/08/25 07:02 Urine Color Yellow 08/07/25 19:08 Urine Appearance Clear (Clear) 08/07/25 19:08 Urine pH 6.5 (4.5-7.5) 08/07/25 19:08 Ur Specific [place] 1.009 (1.000-1.030) 08/07/25 19:08 Urine Protein Negative (Negative) 08/07/25 19:08 Urine Glucose (UA) Negative (Negative) 08/07/25 19:08 Urine Ketones Negative (Negative) 08/07/25 19:08 Urine Nitrite Negative (Negative) 08/07/25 19:08 Ur Leukocyte Esterase 1+ (Negative) H 08/07/25 19:08 Urine WBC (Auto) 6-10 /hpf (0-5) H 08/07/25 19:08 Urine RBC (Auto) 6-10 /hpf (0-2) H 08/07/25 19:08 U Hyaline Cast (Auto) 0-2 /lpf (0-2) 08/07/25 19:08 U Epithel Cells (Auto) 3-5 /hpf (0-2) H 08/07/25 19:08 Urine Bacteria (Auto) 3+ (None Seen) H 08/07/25 19:08 08/07/25 19:08 POC Ur Test NEG
[2025-08-08] MEDS ORDERED: HYDROmorphone INJ 1 MG/ML SYRINGE IV PRN (09:51)
[2025-08-08] MEDS ORDERED: ONDANSETRON INJ 2 MG/ML 2 ML VIAL IV PRN (09:51)
[2025-08-08] MEDS ORDERED: ATROPINE SULFATE 0.1 MG/ML 10ML SYR IV PRN (09:51)
[2025-08-08] MEDS ORDERED: MIDAZOLAM HCL 1 MG/ML 2ML VIAL ONE (09:53)
[2025-08-08] MEDS ORDERED: PROPOFOL IV EMULSION 10 MG/ML 20 ML VIAL IV ONE (09:53)
[2025-08-08] MEDS ORDERED: LIDOCAINE 2% 2 ML VIAL/AMP(20MG/ML) INFIL ONE (09:53)
[2025-08-08] MEDS ORDERED: ONDANSETRON INJ 2 MG/ML 2 ML VIAL ONE (09:54)
[2025-08-08] MEDS ORDERED: DEXAMETHASONE SOD INJ 4 MG/ML VIAL ONE (09:54)
[2025-08-08] MEDS ORDERED: ceFAZolin 330 MG/ML 1 GM VIAL ONE (10:26)
[2025-08-08] MEDS ORDERED: WATER, STERILE FOR INJ 10 ML VIAL ONE (10:27)
[2025-08-08] MEDS ORDERED: PHENYLEPHRINE HCL 10 MG/ML VIAL ONE (10:29)
--- NOTE | 2025-08-08 10:37 | Operative Report ---
[facility] Post Operative Report Pre & Post Diagnosis Operation Date: 08/08/25 08:25 Pre-Op Diagnosis: Kidney stone Post-Op Diagnosis: Kidney Stone I identified the patient and participated in the time-out.: Yes Procedure Operation Date: 08/08/25 08:25 Actual Procedures p Cystoscopy, Left Retrograde Pyelogram, Left Aspiration, Left Stent P lacement(Left) - Alexander Alberto, Surgeon Alexander Alberto, II, DO Trust Administrator None Estimated Blood Loss 1 Findings Consistent with Post-Op Diagnosis Stent placed in good position. Significant Hydronephrosis. Mild debris in left Renal Pelvis Specimens None Drains 4.8 Fr x 26 cm stent Anesthesia Type MAC Complications none Disposition Disposition: Recovery Room Indications Patient with obstruction. Risks and benefits discussed at length. Description of Procedure Patient was consented and brought back to the operating room. Patient was placed under anesthesia in the supine position and moved to the dorsal lithotomy position. Patient was prepped and draped in the regular sterile fashion. A time out was completed. A 30degree Cystoscope was placed into the bladder and the entire bladder was examined. The UO's were identified. The UO was cannulized with a catheter which was able to advance. The catheter was able to advance past the stone and urine was aspirated from the renal pelvis. Mild debris was noted. The urine was sent for culture. Then, a retrograde pyelogram was completed. A wire was then placed. With the wire in place, a 4.8 Fr Double J stent was placed. It was confirmed with fluoroscopy. With the stent in place, the bladder was emptied. The scope was removed. The patient was cleaned, aroused from anesthesia, and transferred to the pacu in stable condition having tolerated the procedure well with no complications. I was present and participated in all aspects of the procedure. The patient will be monitored in the PACU until transferred. Plan to monitor post op. Can consider stone treatment in 1-2 weeks. I attest to the content of the Intraoperative Record and any orders documented therein. Any exceptions are noted below.
[2025-08-08] MEDS: DIATRIZOATE MEGLUMINE 30% 100ML VIAL INSTIL ONE (10:43)
--- NOTE | 2025-08-08 11:14 | Anesthesiology Progress Note ---
Date of Service August 08, 2025 Anesthesia Post Procedure Vital Signs Vital Signs: Temp Pulse Pulse Pulse Pulse Resp BP 08/08/25 11:05 84 15 08/08/25 10:55 80 14 08/08/25 10:49 36.6 C 79 14 08/08/25 09:37 36.8 C 84 18 08/08/25 07:39 36.5 C 77 16 08/08/25 01:00 36.4 C L 69 20 08/08/25 00:10 08/08/25 00:10 36.3 C L 78 16 08/07/25 22:31 85 08/07/25 21:00 93 H 19 08/07/25 19:00 87 20 08/07/25 18:30 93 H 08/07/25 17:25 36.5 C 85 18 148/93 H BP Pulse Ox O2 Del Method O2 Flow Rate 08/08/25 11:05 115/78 100 Oxymask 3 08/08/25 10:55 104/74 100 Oxymask 7 08/08/25 10:49 108/71 100 Oxymask 7 08/08/25 09:37 117/77 96 Room Air 08/08/25 07:39 113/76 97 Room Air 08/08/25 01:00 100/69 99 Room Air 08/08/25 00:10 Room Air 08/08/25 00:10 125/84 96 Room Air 08/07/25 22:31 08/07/25 21:00 146/91 H 98 Room Air 08/07/25 19:00 155/95 H 99 Room Air 08/07/25 18:30 08/07/25 17:25 99 Room Air Pain Intensity Left Lower Abdomen: Pain Intensity: 9 Transfer of Care Handoff Completed per policy Notes Mental Status: alert / awake / arousable and participated in evaluation Patient Amnestic to Procedure: Yes Nausea / Vomiting: adequately controlled Pain: adequately controlled Airway Patency, RR, SpO2: stable & adequate BP & HR: stable & adequate Hydration State: stable & adequate Anesthetic Complications: no major complications apparent and Pt Satisfied with anesthetic care
--- NOTE | 2025-08-08 11:25 | Fluoroscopy Report ---
FL retrograde includes kub CLINICAL HISTORY: LEFT STENT COMPARISON STUDY: None FLUOROSCOPY TIME: 10 seconds FLUOROSCOPY IMAGES: 4 EXPOSURE DOSE: 1.6 mGy FINDINGS: Fluoroscopy was provided for urologic procedure. IMPRESSION: Intraoperative fluoroscopy. ACT 112: Negative or not required by law. Electronically signed by: Vinnie Pressley M.D. 08/08/2025 11:23 AM
[2025-08-08] MEDS: DEXTROAMPHETAMINE/AMPHETAMIME IR 5 MG TAB PO SCH (12:04)
[2025-08-08 12:41] VITALS: RESP 16
--- NOTE | 2025-08-08 13:17 | Hospitalist Progress Note ---
Date of Service August 08, 2025 Assessment & Plan (1) Hydronephrosis concurrent with and due to calculi of kidney and ureter: Plan: This is a 50yo F with a PMH of urolithiasis, migraine, ADHD, IBS, mood disorder, thyroid nodules, ongoing tobacco abuse who presents with flank pain and was found to have a 7 mm proximal left ureteric calculus with moderate left hydronephrosis. POD #0 s/p cystoscopy, Left Retrograde Pyelogram, Left Aspiration, Left Stent Pl acement(Left) by Dr. Alberto Started on Rocephin for suspected UTI. Urine culture pending Discussed with urology - plan for 5 d course abx. May be following up on Monday in office for stone treatment, urology to coordiante Pain control, PRN Pyridium and oxybutynin for stent related discomfort Possible dc this evening vs tomorrow based on pain this afternoon, will re- evaluate Migraine history PRN butalbital-acetaminophen ADHD/mood disorder Stable on home regimen, continue Tobacco use disorder Nicotine patch as needed DVT Ppx: SQ lovenox to start this evening Code status: FULL Dispo: Admitted to med/surg Patient seen in collaboration with Dr. Cortez. Please see addendum. I spent a total of 50 minutes coordinating, documenting, and providing care for this patient excluding time spent in the performance of separately billed services or time spent by another provider/QHP. Admission and Anticipated Discharge Date Admission Date: August 07, 2025 Subjective Seen in 379-2 following ureteral stent placement. Still groggy from anesthesia but tolerating lunch without issue. Urinating post procedure with some discomfort in suprapubic area but otherwise no issue. No F/C, CP, SOB, N/V, abd pain, diarrhea or constipation. Review of Systems Review of Systems: At least ten systems reviewed and negative except as noted in the HPI. Physical Exam Physical Exam: Gen: WD/WN, NAD, resting in bed, A&Ox3 HEENT: Normocephalic, atraumatic,mucous membranes moist Lung: Clear to Auscultation bilaterally Heart: Regular rate, regular rhythm Abdomen: Soft, NT, ND +BS x 4 : Suprapubic TTP Extremities: no edema Skin: Warm, no rash Results & Data Results & Data Vital Signs (Past 12 Hours) Vital Signs Temp Pulse Pulse Resp BP Pulse Ox O2 Del Method 08/08/25 12:30 36.8 C 90 16 112/78 97 Room Air 08/08/25 11:57 36.7 C 84 14 112/73 95 Room Air 08/08/25 11:29 36.8 C 83 16 117/78 95 Room Air 08/08/25 11:15 36.5 C 83 15 106/79 96 Room Air 08/08/25 11:05 84 15 115/78 100 Oxymask 08/08/25 10:55 80 14 104/74 100 Oxymask 08/08/25 10:49 36.6 C 79 14 108/71 100 Oxymask 08/08/25 09:37 36.8 C 84 18 117/77 96 Room Air 08/08/25 07:39 36.5 C 77 16 113/76 97 Room Air O2 Flow Rate 08/08/25 12:30 08/08/25 11:57 08/08/25 11:29 08/08/25 11:15 08/08/25 11:05 3 08/08/25 10:55 7 08/08/25 10:49 7 08/08/25 09:37 08/08/25 07:39 Laboratory Results Short CBC 08/07/25 08/08/25 Range/Units 17:48 07:02 WBC 10.50 11.68 H (4.8-10.8) K/ul Hgb 14.0 13.1 (12.0-16.0) g/dL Hct 40.5 39.0 (37.0-47.0) % Plt Count 372 334 (130-400) K/uL BMP 08/07/25 08/08/25 17:48 07:02 Sodium 138 140 Potassium 3.6 3.8 Chloride 103 106 Carbon Dioxide 26 27 BUN 14 10 Creatinine 1.05 0.67 D Glucose 93 87 Calcium 9.3 9.1 Liver Function 08/07/25 Range/Units 17:48 Total Bilirubin 0.2 (0.2-1.0) mg/dl AST 22 (13-39) U/L ALT 23 (7-52) U/L Alkaline Phosphatase 106 H (34-104) U/L Albumin 4.4 (3.4-5.0) gm/dl Urine 08/07/25 Range/Units 19:08 Urine Color Yellow Urine Appearance Clear (Clear) Urine pH 6.5 (4.5-7.5) Ur Specific [place] 1.009 (1.000-1.030) Urine Protein Negative (Negative) Urine Glucose (UA) Negative (Negative) Diagnostic Findings Abdomen/Pelvis CT 08/07/25 19:11 Exam: CT abdomen/pelvis without contrast. Reason for exam: Flank pain. Previous studies: CT abdomen/pelvis 05/15/2024. FINDINGS: The lower lung zones remain essentially clear. Liver unremarkable. Clips from cholecystectomy are present. Pancreas and spleen are unremarkable. Adrenal glands are unremarkable. Right kidney is unremarkable. Left kidney shows moderate hydronephrosis with a 1 mm mid pole calyceal calculus. There is a 7 x 4 mm calculus in the proximal left ureter with proximal ureteral dilatation. No further ureteral calculi seen at this time. Pelvic phleboliths remain stable. Bowel patterns are unremarkable without evidence of bowel obstruction. Appendix is unremarkable. IMPRESSION: 1. 7 mm proximal left ureteric calculus with moderate left hydronephrosis. Additional small left intrarenal calculus is present. 2. Otherwise negative for acute abnormalities. Electronically signed by Vinnie Rick 08-07-2025 8:47 PM Retrograde Pyelogram 08/08/25 10:00 FL retrograde includes kub CLINICAL HISTORY: LEFT STENT COMPARISON STUDY: None FLUOROSCOPY TIME: 10 seconds FLUOROSCOPY IMAGES: 4 EXPOSURE DOSE: 1.6 mGy FINDINGS: Fluoroscopy was provided for urologic procedure. IMPRESSION: Intraoperative fluoroscopy. ACT 112: Negative or not required by law. Electronically signed by: Vinnie Pressley M.D. 08/08/2025 11:23 AM
[2025-08-08] MEDS ORDERED: PHENAZOPYRIDINE HCL 200 MG TAB PO PRN (14:26)
[2025-08-08] MEDS ORDERED: MoRPHine SULFATE 4 MG/ML 1 ML CARP\\VIAL IV PRN (14:28)
[2025-08-08 14:30] VITALS: BP 132/84; PULSE 90; TEMP 98.4; O2SAT 96
[2025-08-08] MEDS: ACETAMINOPHEN 500 MG TAB PO PRN (14:55)
[2025-08-08] MEDS: TAMSULOSIN HCL 0.4 MG CAP PO SCH (15:20)
--- NOTE | 2025-08-08 15:54 | Discharge Summary ---
<Statement entered by Hossein Cortez, DO - 08/08/25 17:19> I have seen and examined the patient and have discussed the case with the advance practice provider. I have reviewed the advanced practitioner's documentation, and I agree with, and take responsibility for that plan of care. Patient seen postoperatively. Has had stents previously. Severe pain significantly improved. Was tolerating her diet. Discussed discharge plans as outlined below I spent a total of 16 minutes coordinating, documenting, and providing care for this patient excluding time spent by another provider/QHP. Discharge Summary Date of Service August 08, 2025 Principal Dx & Hospital Course #1 = Principal Diagnosis (1) Hydronephrosis concurrent with and due to calculi of kidney and ureter: This is a 50yo F with a PMH of urolithiasis, migraine, ADHD, IBS, mood disorder, thyroid nodules, ongoing tobacco abuse who presents with flank pain and was found to have a 7 mm proximal left ureteric calculus with moderate left hydronephrosis. POD #0 s/p cystoscopy, Left Retrograde Pyelogram, Left Aspiration, Left Stent Placement(Left) by Dr. Alberto Started on Rocephin for suspected UTI. Urine culture pending - discharge on Cipro for 5 day course, will follow culture Urology scheduled follow up on Monday in office for stone treatment Pain control with OTC tylenol and ibuprofen, oxycodone as needed for severe breakthrough pain Continue daily Flomax until otherwise directed by urology PRN Pyridium and oxybutynin for stent related discomfort Patient seen in collaboration with Dr. Cortez. Notes For Next Care Provider Obstructive uropathy s/p stent to ureter, uro follow up Monday for stone tx, continue empiric abx for suspected UTI Medication Changes From Visit Cipro course, pain control and bladder spasmodic medications PRN Admission HPI Per Admitting Provider History obtained from patient and records. Medical history significant for urolithiasis, migraine, ADHD, IBS, mood disorder, thyroid nodules, ongoing tobacco abuse. Patient experienced achy left flank pain today reminiscent of kidney stone attack. Nausea with bilious emesis symptoms. Denies gross hematuria. No fever, no chills. IV ceftriaxone administered at the ER. 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, no EtOH intake, school paraprofessional Admission Exam Per Admitting Provider GENERAL: Slightly uncomfortable, pleasant, no respiratory distress SKIN: Normal color, warm HEENT: Bespectacled, pink palpebral conjunctivae, no ptosis, dry buccal mucosa NECK : Supple, no tenderness CHEST : CTA, no tenderness HEART : RRR, no obvious murmurs ABDOMEN: Some distention, left flank tenderness EXTREMITIES : No LE swelling/tenderness, palpable pulses, no other conspicuous deformities noted NEUROLOGIC : Coherent, no facial asymmetry, no other gross focality Discharge Exam Gen: WD/WN, NAD, resting in bed, A&Ox3 HEENT: Normocephalic, atraumatic,mucous membranes moist Lung: Clear to Auscultation bilaterally Heart: Regular rate, regular rhythm Abdomen: Soft, NT, ND +BS x 4 : Suprapubic TTP Extremities: no edema Skin: Warm, no rash Updated Medication List Medication Instructions Recorded Confirmed Type dextroamphetamine-amphetamine 5 mg 5 mg PO QDL 12/27/19 08/07/25 History tablet (Adderall) dextroamphetamine-amphetamine ER 25 mg PO QAM 12/27/19 08/07/25 History 25 mg 24hr capsule,extend release (Adderall XR) acyclovir 200 mg capsule 200 mg PO TID PRN Cold Sores 05/15/24 08/07/25 History [id number] 1 cap PO QID PRN Migraine Headache 05/15/24 08/07/25 History 50 mg-300 mg-40 mg capsule cholecalciferol (vitamin D3) 1,250 50,000 unit PO WK 05/15/24 08/07/25 History mcg (50,000 unit) capsule ciprofloxacin HCl 500 mg tablet 500 mg PO BID #10 tabs 08/08/25 Rx ondansetron 4 mg disintegrating 4 mg PO Q8H PRN nausea and 08/08/25 Rx tablet vomiting #9 tabs oxybutynin chloride 5 mg tablet 5 mg PO BID PRN bladder spasms #8 08/08/25 Rx tabs oxycodone 5 mg tablet 5 mg PO Q8H PRN severe pain (scale 08/08/25 Rx score 7-10) #6 tabs phenazopyridine 200 mg tablet 200 mg PO TID PRN pain #6 tabs 08/08/25 Rx (Pyridium) tamsulosin 0.4 mg capsule 0.4 mg PO QAM #30 caps 08/08/25 Rx Hospital Stay Data Consultations 08/07/25 21:05 ED Decision to Admit Stat 08/08/25 00:11 Consult Urology Routine Procedures Performed Operation Date: 08/08/25 08:25 Actual Procedures p Cystoscopy, Left Retrograde Pyelogram, Left Aspiration, Left Stent Placement(Left) - Alexander Alberto, Diagnostic Imagining Performed 08/07/25 19:11 CT abd pelvis wo con Stat 08/08/25 10:00 FL retrograde includes kub Routine Pending Results Patient Have Any Pending Studies at Discharge: No Discharge Instructions Given to Patient (Per Discharging Provider) MEDICATION CHANGES: NEW: Cipro 500mg by mouth twice daily x 4 days forUTI Flomax 0.4mg daily for now PRN Zofran, Pyridium, Oxybutynin for stent related discomfort as well as OTC Tylenol, ibuprofen and oxycodone for severe breakthrough pain PENDING TEST RESULTS: Urine culture pending RECOMMENDATIONS FOR FOLLOW-UP: Follow up with PCP as scheduled. Follow up with urology for stone treatment arranged for Monday, 08/11 Complete antibiotic in its entirety. Continue medication regimen as scheduled aside from changes noted above. OTHER INSTRUCTIONS: Seek medical attention if you have: * temperature above 101 * chest pain or trouble breathing * abdominal pain, nausea, vomiting * diarrhea, dark stools or bloody stools * any unanswered questions or concerns Call 911 if symptoms are severe. Please take good care of yourself. Call if you have any questions or problems. You can reach a [facility] hospitalist on duty at [facility] 24 hours a day by calling [phone]. Total Time Total Time Spent Total Time Spent (In Minutes): 45
[2025-08-08] MEDS ORDERED: cefTRIAXone SODIUM 2,000 MG/50 ML BAG IV SCH (21:00)
== END 2025-08-08 17:49 | disposition home or self-care (01) | DRG 661 ==
LOC: ED 17:15 → 3N 22:37 → INTOOBSV 22:37 → 3N 22:58